=== PATIENT | female | born 1975 | race Caucasian/White ===

== ENCOUNTER 2023-05-20 08:10 | Emergency (ER) | payer BC | END 2023-05-20 10:34 | disposition home or self-care (01) | LOC: JD.ED 08:10 | DX: S06.0X0A Concussion without loss of consciousness, initial encounter (principal); Z91.040 Latex allergy status; Z88.5 Allergy status to narcotic agent; Z88.8 Allergy status to other drugs, medicaments and biological substances; Z79.899 Other long term (current) drug therapy; W22.8XXA Striking against or struck by other objects, initial encounter | CPT/HCPCS: 70450; 70450-26; 99283; 99284 ==